=== PATIENT | female | born 1980 | race Caucasian/White ===

== ENCOUNTER 2016-08-20 11:51 | Inpatient (IN) ==
[2016-08-20 12:35] LABS: MANUAL DIFF NEEDED? NO
[2016-08-20 12:57] LABS: BASO% 0.1 % (0.0-0.8); EOS% 0.3 % (0.0-10.0); HEMATOCRIT 23.3 % (37.0-47.0); HEMOGLOBIN 7.5 g/dL (12.0-16.0); IMM GRAN% 0.5 % (0.0-0.5); LYMPH# 1.02 X1000 (1.2-3.4); LYMPH% 11.8 % (20.5-51.1); MCH 28.5 PG (27-31); MCHC 32.2 g/dL (33-37); MCV 88.6 FL (81-99); MONO% 6.5 % (1.7-9.3); MPV 10.7 FL (7.4-10.4); NEUT% 80.8 % (42.2-75.2); PLT 193 X1000 (130-400); RBC 2.63 XMIL (4.2-5.4)
[2016-08-20 12:58] LABS: EOS# 0.03 X1000 (0.0-0.7); IMM GRAN# 0.04 X1000 (0.0-0.04); MONO# 0.56 X1000 (0.11-0.59)
--- NOTE | 2016-08-20 13:05 | PROVIDER DOCUMENTATION ---
HPI-General Adult - General Chief Complaint: Psych Stated Complaint: PSYCH Time Seen by Provider: 08/20/16 12:34 Source: patient Allergies/Adverse Reactions: Patient Allergies Allergy/AdvReac Type Severity Reaction Status Date / Time No Known Allergies Allergy Verified 08/20/16 12:05 - History of Present Illness -Gen Adult Nature of Presenting Problems: Pt. is 36 yof that presents with c/o hallucinations and previous overdoses. Pt. went on a meth binge 12 days ago and was taken to [facility] where she was admitted to the ICU for OD. While there, patient was found to be 4 months with demise. Pt. was transferred to where she was induced and gave with a D and C. Pt. was evaluated by mental health and was discharged to go home yesterday. Today she thinks there are invisible people who are taking pictures of her when she is in the bathroom and placing them on the internet. Pt. denies any SI or HI. Location of Pain/Injury: reports: none. denies: head, face, mouth, neck, chest , upper extremity, hand(s), abdomen, back, pelvis, genitalia, lower extremity, feet, upper body, lower body, generalized Pain Radiation: reports: no radiation Quality of Pain: reports: none. denies: aching, burning, cramping, dull, fullness, indigestion, pressure, sharp, stabbing, tearing, throbbing, tightness Severity: reports: severe Onset/Duration: reports: unsure, gradual Timing: reports: still present. denies: improving, gone now, resolved prior to arrival, intermittent, constant, changing over time, getting worse Context/Activities at Onset: reports: recent emotional stress. denies: recent physical stress, recent trauma history, possible bad food, cold exposure, out of country travel Modifying Factors: improves with: nothing Associated Symptoms: reports: other (Hallucinations). denies: anxiety, arm pain , back/neck pain, chest pain, constipation, cough, diaphoresis, diarrhea, dizziness, EENT symptoms, fatigue, fever/chills, genitourinary problems, headaches, heartburn, joint pain, loss of appetite, malaise, muscle aches, sinus congestion/drainage, nausea, rash, seizure, shortness of breath, sensory/ motor loss, pain with inspiration, swelling/mass in abdomen, syncope, vomiting, weakness, trouble walking Similar Symptoms Previously?: Yes Recently seen or treated by another doctor?: Yes Review of Systems - Adult - REVIEW OF SYSTEMS - ADULT Constitutional: reports: see HPI, fever. denies: chills, fatique Eyes: reports: see HPI. denies: discharge, blurred vision, double vision Ears, Nose, Mouth & Throat: reports: see HPI. denies: ear pain, hearing loss, nose pain, mouth/dental pain, throat swelling Cardiovascular: reports: see HPI. denies: chest pain, irregular heart rate, palpitations, syncope Respiratory: reports: see HPI. denies: cough, dyspnea on exertion, pleurisy, shortness of breath, wheezing Gastrointestinal: reports: see HPI. denies: abdominal pain, difficulty swallowing, nausea, vomiting Genitourinary: reports: see HPI. denies: dysuria, flank pain, hesitency, urgency Musculoskeletal: reports: see HPI. denies: bone pain, joint pain, muscle aches , neck pain Integumentary: reports: see HPI. denies: hives, hair loss, itching, rash, skin thickening Neurological: reports: see HPI. denies: ataxia, headache/migraines, numbness, seizure, tremors Psychiatric: reports: see HPI, alcohol/drug dependence, depression, emotional problems, other (hallucinations). denies: insomnia, panic attacks, suicidal thoughts Past History - Adult - PAST MEDICAL HISTORY-ADULT Review of Records: reports: Old Records Reviewed, Nursing Assessment Review, Medications Reviewed, Social history reviewed & non-contributory. - IMMUNIZATION STATUS Childhood Immunizations: See Nurse Assessment Flu Vaccine: See Nurse Assessment - FAMILY HISTORY Family History: reviewed, not pertinent - SOCIAL HISTORY Smoking: cigarettes, greater than 1 pack/day Provider spent 3-5 mins advising pt. on dangers of tobacco.: Discussed the need to stop smoking. Substance Use: amphetamines Physical Exam-General - PHYSICAL EXAM-ADULT Initial Vital Signs Reviewed: Yes - CONSTITUTIONAL General Appearance: alert, moderate distress, obese. negative: thin, anxious, lethargic, slow to respond, obtunded, combative - EYES Eyes: PERRL/EOMI, pink conjunctivae. negative: conjuctival exudate, scleral icterus, subconjunctival hemorrhage - HEAD, EARS, NOSE, MOUTH & THROAT HENMT: normocephalic/atraumatic, moist mucous membranes, other (Multiple fever blisters on upper and lower lips). negative: angioedema, frontal tenderness, maxillary tenderness - NECK Neck: non-tender, full range of motion, supple, normal inspection. negative: lymphadenopathy, trachial deviation, thyromegaly - RESPIRATORY Respiratory: lungs clear, normal breath sounds. negative: crackles, rales, rhonchi, stridor, wheezing - CARDIOVASCULAR Cardiovascular: regular rate, rhythm, no edema, no JVD, no murmur, tachycardia. negative: extra beats, friction rub, irregularly irregular - GASTROINTESTINAL (ABDOMEN) Abdominal Exam: normal bowel sounds, non tender, soft. negative: distended, guarding, rigid, rebound, tenderness, hernia, mass - LYMPHATIC Lymphatic: no adenopathy. negative: axilla node tender, cervical node tenderness - MUSCULOSKELETAL Back Exam: normal inspection, no CVA tenderness, no vertebral tenderness. negative: ecchymosis, scoliosis, vertebral tenderness Extremity: normal range of motion, non-tender, normal gait, normal inspection. negative: deformity, erythema, inflammation, swelling, tenderness Peripheral Pulses: radial (R): 2+, radial (L): 2+ - SKIN Integumentary: warm/dry, pallor. negative: cyanosis, diaphoresis, ecchymosis, erythema, jaundice, mottled, petechiae, purpura, rash, swelling, tenderness - NEUROLOGIC Neurologic: grossly normal, no motor/sensory deficits. negative: aphasia, facial droop, focal weakness, motor weakness, sensory deficit - PSYCHIATRIC Psych/Mental Status: oriented x 3, depressed affect, other (hallucinations) Progress - PLAN OF CARE/RESULTS Progress/Plan/Lab Results: Vital Signs - 8 hr 08/20/16 12:00 Temperature 99.9 F H Pulse Rate 121 H Respiratory Rate 18 Blood Pressure 132/85 O2 Sat by Pulse Oximetry 100 Laboratory Results - last 24 hr 08/20/16 12:20 WBC 8.86 RBC 2.63 L Hgb 7.5 L Hct 23.3 L MCV 88.6 MCH 28.5 MCHC 32.2 L RDW Std Deviation 12.8 Plt Count 193 MPV 10.7 H Immature Gran % (Auto) 0.5 Neut % (Auto) 80.8 H Lymph % (Auto) 11.8 L Hopkins % (Auto) 6.5 Eos % (Auto) 0.3 Baso % (Auto) 0.1 Immature Gran # (Auto) 0.04 Neut # (Auto) 7.02 H Lymph # (Auto) 1.02 L Hopkins # (Auto) 0.56 Eos # (Auto) 0.03 Baso # (Auto) 0.01 Orders Category Date Time Status CHEST-2 VIEWS [RAD] Stat Exams 08/20/16 12:08 Taken ALCOHOL BLOOD Stat Lab 08/20/16 12:20 Received BLOOD CULTURE [BLDCUL] Stat Lab 08/20/16 12:08 Ordered CBC WITH ELECTRONIC DIFF [HEME] Stat Lab 08/20/16 12:20 Completed COMPREHENSIVE METABOLIC PANEL [CHEM] Stat Lab 08/20/16 12:20 Received FREE T4 Stat Lab 08/20/16 12:20 Received Flu Swab [INFLUENZA SCREEN A/B] Stat Lab 08/20/16 12:56 Ordered LACTATE, PLASMA [CHEM] Stat Lab 08/20/16 12:20 Received TSH Stat Lab 08/20/16 12:[address] W/POSS RFLX CULT [URINALYSIS] Stat Lab 08/20/16 12:08 Uncollected URINE DRUG SCREEN PL Stat Lab 08/20/16 12:08 Uncollected VITAMIN B12 Stat Lab 08/20/16 12:20 Received Result Diagrams: 08/20/16 12:20 08/20/16 12:20 - CONSULTS/PCP/HOSPITALIST Notification #1 *Consult/PCP/Hospitalist*: Dr. Myers Time Discussed: 13:52 Reason/Comments: Admission Consult Disposition: Admit (Also consult CLAIM PROFESSIONAL) #2 Consult: Dr. Hernandez Time Discussed: 13:59 Reason/Comments: Consult Departure - Departure Time of Disposition Decision: 13:52 DIAGNOSIS: Hallucinations, Elevated liver enzymes UTI (urinary tract infection) Qualifiers: Urinary tract infection type: acute cystitis Hematuria presence: without hematuria Qualified Code(s): N30.00 - Acute cystitis without hematuria Anemia Qualifiers: Anemia type: unspecified type Qualified Code(s): D64.9 - Anemia, unspecified Disposition: ADMITTED INPATIENT 09 Certified Medical Emergency: Emergent Condition: Stable Referrals and Follow-Ups: None,PCP [Primary Care Provider] - Attestation - Physician/ AUNG Attestation Patient care was provided by Advanced Practice Provider:: Yes Advanced Practice Provider:: Shweta Albert Advanced Practice Provider documentation review:: The Mid-level provider documentation, treatment plan and medical decision making was reviewed by the physician who agrees with all treatment and medical decision making by the MLP.
[2016-08-20 13:06] LABS: AGAP 11; ALBUMIN 2.4 g/dL (3.5-5.0); ALKALINE PHOSPHATASE 67 U/L (32-104); BUN 15 mg/dL (8-22); CALCIUM 8.1 mg/dL (8.8-10.2); CHLORIDE 106 mmol/L (98-107); COSMO 274; GOT 183 U/L (10-30); GPT 216 U/L (10-36); POTASSIUM 3.5 mmol/L (3.5-5.1); SODIUM 136 mmol/L (136-145); TCO2 19 mmol/L (25-35); TOTAL PROTEIN 4.7 g/dL (6.3-8.3)
[2016-08-20 13:23] LABS: URINE SOURCE VOIDED
[2016-08-20 13:32] LABS: BILIRUBIN URINE NEGATIVE (NEGATIVE); BLOOD URINE 4+ (NEGATIVE); CLARITY SL. CLOUDY (CLEAR); COLOR YELLOW; GLUCOSE URINE NEGATIVE (NEGATIVE); LEUKOCYTES URINE 1+ (NEGATIVE); NITRITE URINE NEGATIVE (NEGATIVE); PROTEIN URINE TRACE mg/dL (NEGATIVE); UR AMPHETAMINES QUAL PRESUMPTIVE POSITIVE (NONE DETECT); UR BARBITUATES QUAL NONE DETECTED (NONE DETECT); UR BENZODIAZEPIN QUAL PRESUMPTIVE POSITIVE (NONE DETECT); UR CANNABINOIDS QUAL NONE DETECTED (NONE DETECT); UR COCAINE QUAL NONE DETECTED (NONE DETECT); UR MDMA QUAL NONE DETECTED (NONE DETECT); UR METHADONE QUAL NONE DETECTED (NONE DETECT); UR METHAMPHETAMINE QUAL PRESUMPTIVE POSITIVE (NONE DETECT); UR OPIATES QUAL PRESUMPTIVE POSITIVE (NONE DETECT); UR OXYCODONE QUAL NONE DETECTED (NONE DETECT); UR PCP QUAL NONE DETECTED (NONE DETECT); UR TCA QUAL NONE DETECTED (NONE DETECT); UROBILINOGEN URINE NORMAL
[2016-08-20 13:38] LABS: FREE T4 1.53 ng/dL (0.93-1.70)
[2016-08-20 13:43] LABS: URINE CULTURE PL NEEDED? YES; URINE EPITHELIAL CELLS >10 /HPF (<10); URINE RBC 20-40 /HPF (<10)
[2016-08-20] MEDS ORDERED: NICODERM PATCH TD ONE (13:44)
[2016-08-20] MEDS ORDERED: XANAX PO ONE (13:44)
[2016-08-20] MEDS ORDERED: ROCEPHIN 1 GM/NS 1 GM/50 ML IVPB IV ONE (13:45)
[2016-08-20] MEDS ORDERED: NS 1,000 ML IV ONE ×2 (13:46→13:56)
[2016-08-20] MEDS ORDERED: TYLENOL PO PRN (13:56)
[2016-08-20] MEDS ORDERED: ZOFRAN IV PRN (13:56)
[2016-08-20] MEDS ORDERED: ZOVIRAX PO ONE (13:56)
--- NOTE | 2016-08-20 14:47 | Diag Imaging Result Document ---
PROCEDURE NAME: CHEST-2 VIEWS - 08/20/2016 CHEST 2 VIEWS: COMPARISON: No comparison exam. FINDINGS: Heart size is normal. There is apparent ill-defined mild infiltrate at the posterior lower lobe region which is most conspicuous on the lateral view. There is irregular mild fullness at the inferior right hilum. There is no pleural effusion or pneumothorax identified. IMPRESSION: 1. Apparent mild posterior lower lobe infiltrate visible on the lateral view. The possibility of bronchopneumonia cannot be excluded. 2. Mild irregular fullness at the inferior right hilum. While this could possibly relate to perihilar infiltrate or atelectasis, unusual mass lesion cannot be excluded. Followup by chest radiographs or correlation with CT thorax is recommended.
[2016-08-20] MEDS ORDERED: AMPICILLIN ONE ×2 (20:20)
[2016-08-20] MEDS ORDERED: STERILE WATER INJ. ONE ×2 (20:39→20:41)
[2016-08-20] MEDS ORDERED: NS 50 ML ONE (20:39)
[2016-08-20] MEDS: AMPICILLIN IV SCH (20:59)
[2016-08-20] MEDS: NS IV SCH (20:59)
[2016-08-20] MEDS: NORCO-7.5 PO PRN (23:00)
[2016-08-21] MEDS ORDERED: STERILE WATER INJ. ONE (02:41)
[2016-08-21] MEDS ORDERED: NS 50 ML ONE (02:41)
[2016-08-21] MEDS: NS IV SCH ×4 (03:00→20:50)
[2016-08-21] MEDS: AMPICILLIN IV SCH ×4 (03:00→20:50)
--- NOTE | 2016-08-21 08:46 | PROGRESS NOTE ---
DATE: 08/21/2016 SUBJECTIVE: The patient had an uneventful hospital night medically. However, she continued to have some hallucinations last night. Stated that she was hearing people in the room but could not see them. This morning that appears to be improved. OBJECTIVE: Vital signs: Temperature 98, pulse 106, respiratory 28, BP 142/64, saturation 100% on room air. General: Patient is well developed, well nourished. Currently in no respiratory distress. She is awake, alert. Neck: Supple. CV: Regular rate. Chest: Relatively clear. Abdomen: Soft. LABS: Currently pending. ASSESSMENT: 1. Anemia secondary to vaginal bleeding. Hemoglobin and hematocrit are 7.5 and 23. Certainly will need to be transfused if it drops much further. 2. Acute renal failure. Serum creatinine is 2.0. Do not have a baseline. 3. Hypocalcemia. 4. Acute hepatitis, uncertain etiology. 5. Moderate protein calorie malnutrition. 6. Probable urinary tract infection. 7. Intentional drug use and abuse. 8. Auditory hallucinations. PLAN: Uncertain if the auditory hallucinations are secondary to underlying psychiatric illness or secondary to her current use and abuse of illegal substances. We will recheck her hemoglobin and hematocrit this morning and will follow. We will continue ampicillin as it is possible that she has endometritis or pyelonephritis. Further orders as needed. cc: Zeeshan Myers MD
[2016-08-21 09:18] LABS: HEMATOCRIT 26.2 % (37.0-47.0); HEMOGLOBIN 8.4 g/dL (12.0-16.0); MCV 90.3 FL (81-99); RBC 2.9 XMIL (4.2-5.4)
[2016-08-21 09:19] LABS: MCHC 32.1 g/dL (33-37); MPV 10.3 FL (7.4-10.4)
[2016-08-21 09:41] LABS: AGAP 10; ALBUMIN 2.7 g/dL (3.5-5.0); ALKALINE PHOSPHATASE 74 U/L (32-104); BUN 12 mg/dL (8-22); CALCIUM 8.5 mg/dL (8.8-10.2); CHLORIDE 110 mmol/L (98-107); COSMO 282; GOT 113 U/L (10-30); GPT 175 U/L (10-36); MAGNESIUM 1.5 mg/dL (1.5-2.7); POTASSIUM 3.5 mmol/L (3.5-5.1); SODIUM 141 mmol/L (136-145); TCO2 21 mmol/L (25-35); TOTAL PROTEIN 5.1 g/dL (6.3-8.3)
[2016-08-21] MEDS: NORCO-7.5 PO PRN ×3 (11:13→22:50)
--- NOTE | 2016-08-21 15:56 | HISTORY AND PHYSICAL ---
CHIEF COMPLAINT: "I'm crazy. I can't sleep. I am seeing people." HISTORY OF PRESENT ILLNESS: This is a 36-year-old female with a history of gastric bypass, alcohol, methamphetamine use, who presented to the emergency room with her boyfriend stating that she is seeing people, she cannot sleep. She reportedly went on a meth binge 12 days ago and ended up in ICU. According to the records at that time she was taken to [facility] and admitted to ICU for this overdose. While she was there she was found to be 4 months with demise. She was transferred to [facility] where she underwent a D and C. Evidently she was evaluated by [facility]'s mental health and discharged to go home yesterday. She reportedly used methamphetamines after discharge and began seeing invisible people who are taking pictures of her and placing these pictures on the Internet. On arrival to the emergency room she was cooperative. She was calm. Her urine drug screen revealed benzodiazepines, methamphetamines, amphetamines and opiates. She was also found to have a hemoglobin and hematocrit of 7.5 and 23.3. She was given a liter of fluid, Xanax and Rocephin in the emergency room and admitted for further evaluation and treatment. PAST MEDICAL HISTORY: Alcohol abuse, methamphetamine and illicit drug abuse, tobacco use. PAST SURGICAL HISTORY: D and C within the last 2 weeks, gastric bypass. SOCIAL HISTORY: Once again she uses alcohol, methamphetamine, as well as tobacco. ALLERGIES: No known drug allergies. HOME MEDICATIONS: None. REVIEW OF SYSTEMS: A 14-point review of systems is discussed with the patient with pertinent positives stated in the HPI. She denied chest pain, palpitations, syncope, dizziness, any nausea, vomiting, diarrhea, constipation, black or bloody vomitus, black or bloody stools, hematuria. PHYSICAL EXAM: GENERAL: This is a 36-year-old female who is lying in the bed in no distress. VITAL SIGNS: Blood pressure is 155/56 with a heart rate of 98, respirations are 18, temperature is 97.8 degrees oral with oxygen saturations of 100% on room air. HEENT: Head is normocephalic, atraumatic. Pupils equal, round, react to light. EOMs are intact. Sclerae anicteric. Mucous membranes are moist. NECK: Supple with trachea midline. CARDIOVASCULAR: Regular rate and rhythm. S1, S2 appreciated. PULMONARY: Breath sounds are clear. No increased work of breathing noted. GASTROINTESTINAL: Abdomen soft, nontender, nondistended. Bowel sounds in all 4 quadrants. MUSCULOSKELETAL: Good range of motion of joints. EXTREMITIES: No clubbing, cyanosis, or edema. Pulses are palpable x4. Calves are nontender. NEUROLOGIC: She is alert and oriented. DIAGNOSTICS: WBC is 8.8 with a hemoglobin of 7.5, hematocrit 23 and platelets of 193,000. Sodium is 136, potassium 3.5, BUN 15, creatinine 2 with a glucose of 117. Her total bilirubin is 1.6, AST 183, ALT 216. Urine drug screen as stated above. Chest x-ray revealed mild posterior lobe infiltrate. ASSESSMENT AND PLAN: 1. Anemia secondary to vaginal bleeding. We will trend hemoglobin and hematocrit. Currently she is 7.5 and 23. If this drops much further we will transfuse. 2. Acute renal failure. Creatinine is 2. We do not have a baseline. Will hydrate and follow. We will renal dose medications as appropriate. 3. Acute hepatitis uncertain etiology. 4. Moderate protein calorie malnutrition. 5. Probable urinary tract infection. 6. Intentional drug use and abuse. 7. Auditory hallucinations. 8. Tobacco use. PLAN: The patient will be admitted to ICU. She will be placed on telemetry. Will consult PARAMEDICAL AIDE. Will continue with IV hydration, ampicillin for antibiotic coverage. Blood cultures and urine cultures are pending. If necessary antibiotics can be changed appropriately according to culture, sensitivity results. Will continue to monitor for any hallucinations. Further treatments pending hospital course. Dictated by MILAN Fields for Zeeshan Myers MD cc: MILAN Fields MD
[2016-08-21] MEDS: NICODERM PATCH TD SCH (18:39)
[2016-08-21] MEDS: ATIVAN IV PRN (22:51)
[2016-08-22] MEDS: AMPICILLIN IV SCH ×2 (03:30→09:03)
[2016-08-22] MEDS: NS IV SCH ×2 (03:30→09:03)
[2016-08-22] MEDS: ATIVAN IV PRN ×2 (04:56→21:49)
[2016-08-22] MEDS: NORCO-7.5 PO PRN ×4 (04:56→21:50)
[2016-08-22 08:14] LABS: HEMATOCRIT 20.2 % (37.0-47.0); HEMOGLOBIN 6.4 g/dL (12.0-16.0); MCH 29.1 PG (27-31); MCHC 31.7 g/dL (33-37); MCV 91.8 FL (81-99); MPV 10.3 FL (7.4-10.4); RBC 2.2 XMIL (4.2-5.4)
[2016-08-22 08:17] LABS: ALBUMIN 2.1 g/dL (3.5-5.0); CALCIUM 7.5 mg/dL (8.8-10.2); POTASSIUM 3.2 mmol/L (3.5-5.1); TOTAL BILIRUBIN 0.7 mg/dL (0.20-1.00); TOTAL PROTEIN 4.3 g/dL (6.3-8.3)
[2016-08-22] MEDS ORDERED: BENADRYL PO ONE (08:23)
[2016-08-22] MEDS ORDERED: NS 1,000 ML ONE (09:00)
[2016-08-22] MEDS: NICODERM PATCH TD SCH (09:03)
--- NOTE | 2016-08-22 09:03 | PROGRESS NOTE ---
DATE: 08/22/2016 SUBJECTIVE: Patient notes she is feeling much better. Denies any suicidal or homicidal ideation. States that this occurred while she was taking drugs and notes that she does not want to do that anymore. PHYSICAL EXAMINATION: Vital Signs: Temperature 98, pulse 94, respiratory rate 21, BP 131/67, saturation 96% on room air. General: Patient is awake, alert. She is in no distress. Speech is regular. Memory is intact. Neck: Supple. CV: Regular rate. Chest: Relatively clear. Abdomen: Soft. Extremities: Moves all extremities. Neurologic: No changes. LABS: Hemoglobin and hematocrit 6 and 20, were previously 8 and 26. Potassium 3.2, creatinine 1.7, calcium 7.5. AST and ALT both improved. ASSESSMENT: 1. Acute hepatitis, likely secondary to acute drug use, improving. 2. Moderate protein calorie malnutrition. 3. Acute renal failure, improving. 4. Hypocalcemia. 5. Hyponatremia. 6. Anemia secondary to dysfunctional uterine bleeding. PLAN: We will type, cross, and transfuse 2 units today. Hopefully, patient can discharge home in the next 1-2 days. We will transfer her to the floor and allow her to start moving about. She denies any current homicidal or suicidal ideations. Denies any auditory hallucinations. These were likely secondary to acute drug use and as her drug of choice has worn off, she is much more awake and alert. cc: Zeeshan Myers MD
[2016-08-22] MEDS ORDERED: VANCOMYCIN IV PER PHARMACY MISC SCH (10:00)
[2016-08-22] MEDS: ZOSYN 3.375 GM/NS 3.375 GM/50 ML IVPB IV SCH ×3 (10:58→21:22)
[2016-08-22] MEDS: VANCOMYCIN 1,500 MG in NS 250 ML IV SCH (11:22)
[2016-08-22] MEDS ORDERED: LASIX IV ONE (13:30)
[2016-08-22] MEDS ORDERED: HALDOL IV ONE (16:46)
[2016-08-22] MEDS ORDERED: BENADRYL IV ONE (16:47)
[2016-08-22] MEDS ORDERED: HALDOL IV PRN (18:18)
[2016-08-22] MEDS ORDERED: BENADRYL IV PRN (18:19)
[2016-08-22 19:35] LABS: URINE CULTURE PL NEEDED? NO
[2016-08-22 19:36] LABS: MANUAL DIFF NEEDED? NO
[2016-08-22 20:05] LABS: CALCIUM 7.6 mg/dL (8.8-10.2); POTASSIUM 3.3 mmol/L (3.5-5.1)
[2016-08-22 20:06] LABS: BILIRUBIN URINE NEGATIVE (NEGATIVE); BLOOD URINE TRACE (NEGATIVE); CLARITY SL. CLOUDY (CLEAR); COLOR YELLOW; GLUCOSE URINE NEGATIVE (NEGATIVE); LEUKOCYTES URINE NEGATIVE (NEGATIVE); NITRITE URINE NEGATIVE (NEGATIVE); PROTEIN URINE NEGATIVE (NEGATIVE); UROBILINOGEN URINE NORMAL
[2016-08-22 20:06] LABS: BASO% 0.2 % (0.0-0.8); EOS# 0.05 X1000 (0.0-0.7); EOS% 0.9 % (0.0-10.0); HEMATOCRIT 25.8 % (37.0-47.0); HEMOGLOBIN 8.4 g/dL (12.0-16.0); IMM GRAN# 0.06 X1000 (0.0-0.04); IMM GRAN% 1.1 % (0.0-0.5); LYMPH% 22.3 % (20.5-51.1); MCH 29.4 PG (27-31); MCHC 32.6 g/dL (33-37); MCV 90.2 FL (81-99); MONO# 0.74 X1000 (0.11-0.59); MONO% 13.8 % (1.7-9.3); MPV 9.9 FL (7.4-10.4); NEUT% 61.7 % (42.2-75.2); PLT 280 X1000 (130-400); RBC 2.86 XMIL (4.2-5.4)
[2016-08-22 20:08] LABS: URINE EPITHELIAL CELLS <10 /HPF (<10); URINE RBC <10 /HPF (<10); URINE SOURCE CATH
[2016-08-23] MEDS: ZOSYN 3.375 GM/NS 3.375 GM/50 ML IVPB IV SCH ×4 (03:44→21:50)
[2016-08-23] MEDS: ATIVAN IV PRN ×3 (05:51→21:50)
[2016-08-23] MEDS: NORCO-7.5 PO PRN ×3 (05:52→21:50)
[2016-08-23 06:14] LABS: MANUAL DIFF NEEDED? NO
[2016-08-23 06:37] LABS: BASO% 0.2 % (0.0-0.8); EOS# 0.04 X1000 (0.0-0.7); EOS% 0.9 % (0.0-10.0); HEMATOCRIT 25.7 % (37.0-47.0); HEMOGLOBIN 8.2 g/dL (12.0-16.0); IMM GRAN# 0.06 X1000 (0.0-0.04); IMM GRAN% 1.4 % (0.0-0.5); LYMPH# 1.03 X1000 (1.2-3.4); LYMPH% 23.8 % (20.5-51.1); MCH 29.2 PG (27-31); MCHC 31.9 g/dL (33-37); MCV 91.5 FL (81-99); MONO# 0.68 X1000 (0.11-0.59); MONO% 15.7 % (1.7-9.3); MPV 10.3 FL (7.4-10.4); PLT 312 X1000 (130-400); RBC 2.81 XMIL (4.2-5.4)
[2016-08-23] MEDS ORDERED: NS 1,000 ML ONE (08:14)
[2016-08-23] MEDS: NICODERM PATCH TD SCH (11:02)
[2016-08-23] MEDS: VANCOMYCIN 1,500 MG in NS 250 ML IV SCH (18:05)
[2016-08-24] MEDS: ZOSYN 3.375 GM/NS 3.375 GM/50 ML IVPB IV SCH ×2 (04:20→10:19)
[2016-08-24] MEDS: NORCO-7.5 PO PRN ×2 (05:33→10:13)
[2016-08-24] MEDS: ATIVAN IV PRN (05:33)
[2016-08-24 06:24] LABS: HEMATOCRIT 28.3 % (37.0-47.0); HEMOGLOBIN 9.1 g/dL (12.0-16.0); MCH 29.4 PG (27-31); MCHC 32.2 g/dL (33-37); MCV 91.3 FL (81-99); RBC 3.1 XMIL (4.2-5.4)
[2016-08-24 06:49] LABS: CALCIUM 7.6 mg/dL (8.8-10.2); POTASSIUM 3.2 mmol/L (3.5-5.1)
--- NOTE | 2016-08-24 07:29 | Diag Imaging Result Document ---
PROCEDURE NAME: US PELVIC NON-PORT WARDEN COMPLETE - 08/23/2016 PELVIC ULTRASOUND, TRANSABDOMINAL AND ENDOVAGINAL SCAN: FINDINGS: The uterus measures 8.8 x 8.3 x 5.6 cm with an endometrial stripe measuring up to 1.5 cm. There is fluid in the fundal endometrial canal, but there is no definite evidence of retained products of conception. There is a nabothian cyst. There is a small amount of free fluid in the cul-de-sac. There are no ovarian masses. There is color Doppler flow in both ovaries. IMPRESSION: Retained fluid in the endometrial canal but no definite parts of conception. Minimal free pelvic fluid.
[2016-08-24] MEDS ORDERED: DIFLUCAN PO SCH (09:00)
[2016-08-24] MEDS: NICODERM PATCH TD SCH (10:18)
[2016-08-24 13:20] VITALS: BP 115/73
--- NOTE | 2016-08-25 08:48 | DISCHARGE SUMMARY ---
ADMISSION DATE: 08/20/2016 DISCHARGE DATE: 08/24/2016 DISCHARGE DIAGNOSES: 1. Acute hepatitis, likely secondary to acute drug use, improving. 2. Moderate protein calorie malnutrition. 3. Acute renal failure, improving. 4. Hyponatremia, resolved. 5. Anemia secondary to uterine bleeding. DIAGNOSTICS: 1. 08/20/2016: Chest x-ray revealed an apparent mild posterior lower lobe infiltrate. 2. 08/23/2016: Pelvic ultrasound revealed no definite parts of conception in the endometrial canal. MICROBIOLOGY: 1. Blood cultures x2 revealed no growth after 48 hours. 2. Urine culture revealed yeast. HOSPITAL COURSE: Ms. Townsend presented to the emergency room with her boyfriend, stating that she is seeing people and cannot sleep. She was very agitated. She reportedly went on a meth binge about 2 weeks prior to this admission and did end up in ICU at an outlying hospital. She was found to be 4 months with demise. She was transferred to [facility], where she underwent a D and C. She was discharged on 08/19/2016. She, reportedly, used meth after discharge and began to hallucinate. She felt that people were taking pictures of her, particularly in the bathroom, and placing them on the Internet. She was treated with IV hydration, Ativan. She did become very agitated on the , requiring Haldol, Benadryl, and Ativan. Once this period of agitation subsided, she had no further; otherwise, she was very cooperative in her care. She was found to have yeast in her urine. She was given fluconazole and prescription for 3 more days of fluconazole and was transmitted to [facility] per her request. Her hemoglobin and hematocrit were noted to be 7.5 and 23 on admission. On the 4th, her hemoglobin and hematocrit were 6.4 and 20.2. She was transfused 2 units of blood and, today, she is 9.1 and 28.3. DISCHARGE PHYSICAL EXAMINATION: Cardiovascular: Regular rate and rhythm. S1 and S2 appreciated. Pulmonary: Breath sounds are clear with no increased work of breathing noted. Gastrointestinal: Abdomen is soft, nontender, nondistended with bowel sounds in all 4 quadrants. Back: No CVAT. No spine tenderness. Musculoskeletal: Good range of motion of joints. Extremities: No clubbing, cyanosis, or edema. Pulses are palpable and calves are nontender. DISCHARGE ACTIVITY: As tolerated. DISCHARGE VITAL SIGNS: Blood pressure is 113/71 with a heart rate of 69. Respirations are 16. Temperature is 98.6 degrees with room air saturations of 99-100%. DISCHARGE ACTIVITY: As tolerated. DISCHARGE DIET: Regular. FOLLOWUP: 1. She is to follow up with ANALYTICS DIRECTOR as previously instructed per [facility]. 2. She is to follow up with her primary care physician. If she does not have one, she has been given the phone number to the physician referral line as well as [facility] to schedule an appointment. 3. She was given a list of facilities and health care workers that she can call for assistance with drug abuse as well as any mental health issues that she may have. She has been instructed on the perils of continuing with methamphetamine and other illicit drugs that could, ultimately, end up in her . She does voice understanding. She was instructed to return to the emergency room or see her physician for temperature greater than 101, vaginal bleeding, chest pain, palpitations, shortness of breath, dyspnea on exertion, dizziness, generalized weakness, or any questions or concerns that she may have. She is being discharged home in stable condition with her boyfriend. TIME SPENT: This is a greater than 30 minute discharge. Dictated by MILAN Fields for Zeeshan Myers MD cc: MILAN Fields MD
== END 2016-08-24 11:00 | disposition home or self-care (01) ==
LOC: P.ED 11:51 → P.ICU 14:52
PROVIDERS: ATTEND Family Medicine